=== PATIENT | female | born 1995 | race Caucasian/White ===

== ENCOUNTER 2018-08-16 05:09 | Inpatient (IN) | payer BC, OTHER ==
[2018-08-16] MEDS ORDERED: Docusate 100 MG CAP PO PRN (05:28)
[2018-08-16] MEDS ORDERED: Promethazine HCl 25 MG/ML VIAL IM PRN ×2 (05:28→07:44)
[2018-08-16] MEDS ORDERED: Ondansetron PF 4 MG/2 ML Vial IVP PRN ×2 (05:28→07:44)
[2018-08-16] MEDS ORDERED: Bicitra 30 ML UDCUP PO SCH (05:30)
[2018-08-16] MEDS ORDERED: CEFAZOLIN 2 GM in Premix Bag 1 BAG IVPB SCH (05:30)
[2018-08-16 06:00] VITALS: BMI 32.5
[2018-08-16] MEDS: Lactated Ringer's 1,000 ML IV SCH ×2 (06:00→14:47)
[2018-08-16 06:19] LABS: Hemoglobin 11.9 g/dL (12.0-16.0); Mean Corpuscular HGB CONC 33.4 g/dL (32.0-36.0); Mean Corpuscular Hemoglobin 27.7 pg (27.0-31.0); Mean Corpuscular Volume 82.8 fL (78.0-98.0); Mean Platelet Volume 8.6 fL (7.4-10.4); Platelet Count 235 thou/uL (130-400); White Blood Cell (WBC) Count 11.3 thou/uL (4.8-10.8)
[2018-08-16 07:00] LABS: HBSAg Index 0.27 S/CO (0-0.99); Hep B Surf Ag Non-Reactive S/CO (NonReactive); Syphilis Antibody Nonreactive (Nonreactive); Syphilis Antibody Index 0.03 S/CO (<1.00 Non-Reactive)
[2018-08-16] MEDS ORDERED: MORPHINE 5 MG/10 ML PF VIAL ONE (07:01)
[2018-08-16] MEDS ORDERED: Oxytocin 10 UNITS/ML VIAL ONE ×2 (07:01→07:56)
[2018-08-16] MEDS ORDERED: Ondansetron PF 4 MG/2 ML Vial ONE ×3 (07:02→16:21)
[2018-08-16] MEDS ORDERED: ePHEDrine/0.9% NaCl/PF SYRINGE 50 mg/10 ml ONE (07:02)
[2018-08-16] MEDS ORDERED: Phenylephrine HCL 10 MG/ML VIAL ONE (07:17)
[2018-08-16] MEDS ORDERED: PHENYLEPHRINE-NS 100 MCG/ML 10 ML SYRINGE ONE ×2 (07:17→16:21)
[2018-08-16] MEDS ORDERED: L&D-Morphine 4 MG/ML VIAL SLOW IVP PRN (07:43)
[2018-08-16] MEDS ORDERED: Ondansetron HCl/PF 4 MG/2 ML Vial IVP PRN (07:43)
[2018-08-16] MEDS ORDERED: HYDROmorphone 2 MG/ML VIAL SLOW IVP PRN (07:43)
[2018-08-16] MEDS ORDERED: Promethazine HCl 25 MG SUPP PR PRN (07:44)
[2018-08-16] MEDS ORDERED: Naloxone HCl 0.4 mg/ml Vial IVP PRN ×2 (07:44)
[2018-08-16] MEDS ORDERED: Eucerin (Mineral Oil/Petrolatum,White) 30 gm Jar TOP PRN (07:44)
[2018-08-16] MEDS ORDERED: diphenhydrAMINE 50 MG/ML VIAL IVP PRN (07:44)
[2018-08-16] MEDS ORDERED: Naloxone HCl 0.4 mg/ml Vial IV PRN (07:44)
[2018-08-16] MEDS ORDERED: Ketorolac Tromethamine 30 MG/ML VIAL IVP SCH (07:45)
[2018-08-16] MEDS ORDERED: Communication Order-Pharmacy FS SCH (07:45)
[2018-08-16] MEDS ORDERED: Ketorolac Tromethamine 30 MG/ML VIAL ONE ×2 (08:34→16:21)
[2018-08-16] MEDS ORDERED: Adacel (T-DAP) 0.5 ML SYRINGE IM ONE (08:48)
[2018-08-16] MEDS ORDERED: Zolpidem Tartrate 5 MG TAB PO PRN (08:48)
[2018-08-16] MEDS ORDERED: Lanolin Ointment 7 GM TUBE TOP PRN (08:48)
[2018-08-16] MEDS ORDERED: diphenhydrAMINE 25 MG CAP PO PRN (08:48)
[2018-08-16] MEDS ORDERED: NS / Oxytocin 40 units/1000ml 1,000 ML IV SCH (09:00)
[2018-08-16] MEDS ORDERED: Meperidine HCl/PF 25 MG/ML VIAL ONE ×2 (09:37→12:15)
[2018-08-16] MEDS: Meperidine HCl/PF 25 MG/ML VIAL SLOW IVP PRN ×2 (09:39→12:16)
[2018-08-16] MEDS ORDERED: diphenhydrAMINE 50 MG/ML VIAL ONE (10:23)
[2018-08-16] MEDS: Docusate Calcium (SURFAK) 240 MG CAP PO SCH ×2 (12:33→20:50)
[2018-08-16] MEDS: Prenatal Vitamin 1 TAB PO SCH (12:33)
[2018-08-16] MEDS: Ketorolac Tromethamine 30 MG/ML VIAL IVP PRN ×2 (14:43→20:49)
[2018-08-16] MEDS ORDERED: ePHEDrine 50 MG/ML VIAL ONE (16:21)
[2018-08-16] MEDS ORDERED: HYDROcodone/Acetaminophen 5/325 mg Tablet PO PRN (19:45)
[2018-08-16] MEDS: Simethicone Chewable 80 MG TAB PO PRN (20:50)
[2018-08-17] MEDS: Lactated Ringer's 1,000 ML IV SCH ×4 (05:11→22:21)
[2018-08-17] MEDS: Ibuprofen 800 MG TAB PO SCH ×3 (06:34→22:19)
[2018-08-17] MEDS: Docusate Calcium (SURFAK) 240 MG CAP PO SCH ×2 (09:13→20:40)
[2018-08-17] MEDS: Prenatal Vitamin 1 TAB PO SCH (09:13)
[2018-08-17] MEDS: Simethicone Chewable 80 MG TAB PO PRN ×2 (09:13→15:17)
[2018-08-17] MEDS: HYDROcodone/Acetaminophen 5/325 mg Tablet PO PRN ×3 (09:15→20:39)
[2018-08-17] MEDS ORDERED: Ibuprofen 800 MG TAB PO SCH (14:00)
--- NOTE | 2018-08-17 16:42 | OP ---
DATE OF PROCEDURE: 08/16/2018 PREOPERATIVE DIAGNOSES: 1. Hx of LTCS/ Declined 2. GBS positive CLINICAL HISTORY: This is a 23-year-old female, G2, P1, who had an uneventful preoperative course. She was found to have a group B strep positive urine culture at the beginning of her , which was treated with antibiotics; however, the patient was notified that she would be deemed positive for group B strep in the latter portion of her . She continued without any concerns throughout the entirety of the and she requested a repeat low- transverse section versus . Her first was a for breech presentation. The risks, benefits, and possible complications of both were discussed, and the patient continued to desire a repeat . SURGEON: Dr Smaantha Stern RAPID EXTRACTOR OPERATOR: Dr. Garry Osullivan. ESTIMATED BLOOD LOSS: 450 mL. QUANTITATIVE BLOOD LOSS: 580. ANESTHESIA: Spinal. Urine output was clear in the Hull bag at the end of the procedure. DESCRIPTION OF PROCEDURE: The patient was taken to the operating room, where spinal anesthesia was obtained. She was laid in the supine position, and a Hull catheter was atraumatically placed. She was then tilted to the maternal left to displace the uterus and was prepped and draped in the usual sterile fashion. After testing for adequate anesthesia, an incision was made over her previous incision and previous scar was removed. The incision was then taken all the way down to the fascia and the fascia was nicked in the midline. The incision was extended out bilaterally with the Chau scissors. Robert clamps were used x2 to elevate the fascia off of the rectus muscle. In similar fashion, the fascial inferior border was lifted off of the pyramidalis and rectus muscle. The muscles were then in the midline and the peritoneum was breached by tenting the peritoneum. The incision was then extended with a combination of sharp and blunt dissection. The bladder blade was placed. A bladder flap was created and the bladder flap was secured under the bladder blade and the incision was made on the lower uterine segment with the scalpel. When an amniotomy was performed, there was clear fluid. The incision was then extended with traction and the surgeon's hand was placed into the incision to deliver the head through the incision. The head was delivered. There was noted to be a nuchal cord. This was reduced very easily. The anterior shoulder followed by the posterior shoulder followed by the remainder of the infant's body was delivered. The cord was doubly clamped and cut. The cried spontaneously, was shown to the parents and then taken over to the Neonatology bed for the attention of the nurses there. The cord blood was obtained. The uterus was explored and the placenta was delivered manually intact with a three-vessel cord. The uterus was then exteriorized and cleansed of all debris with a dry lap, and the incision was closed with a double-layer closure in a running locking fashion with excellent hemostasis. The bladder flap was then reapproximated with a 3-0 Monocryl and the gutters were cleansed of all debris in four pieces. Seprafilm was placed over the anterior surface of the uterine body and the uterus was then placed back into the abdomen. The peritoneum was then closed in a running fashion and the rectus muscles were reapproximated with a running suture. The prefascial gutters were then cleansed of all debris and the fascia was then closed in a running fashion with 0 Vicryl. The subcutaneous tissues were cleansed of all debris and Bovie cautery was used to cauterize any bleeding. The subcutaneous tissues were then reapproximated with interrupted sutures from the lower layers to the skin and the skin was closed with 0 Vicryl on a Yan needle with excellent hemostasis. Reapproximation was reinforced by Steri-Strips and Mastisol, and a pressure dressing with Telfa and Tegaderm and 4x4s was placed. The patient tolerated the procedure well. She was expressed at the end of the procedure and cleansed and then transferred to [facility] for transfer to the surgical recovery area. All needle, sponge, lap, and instrument counts were correct x2 at the end of the procedure. There were no other issues surrounding this delivery. Job ID: [id number] [facility]
[2018-08-18] MEDS: HYDROcodone/Acetaminophen 5/325 mg Tablet PO PRN (05:57)
[2018-08-18] MEDS: Ibuprofen 800 MG TAB PO SCH ×2 (05:57→14:34)
[2018-08-18] MEDS: Lactated Ringer's 1,000 ML IV SCH ×2 (06:16→11:12)
[2018-08-18 08:00] VITALS: BP 114/62; TEMP 98.4
[2018-08-18] MEDS: Docusate Calcium (SURFAK) 240 MG CAP PO SCH (09:12)
[2018-08-18] MEDS: Prenatal Vitamin 1 TAB PO SCH (09:13)
== END 2018-08-18 18:54 | disposition home or self-care (01) | DRG 788 ==
LOC: L&D 05:09 → 3SW 12:33
PROVIDERS: ADMIT Obstetrics & Gynecology; ATTEND Obstetrics & Gynecology
PROC: 10D00Z1 Extraction of Products of Conception, Low, Open Approach (ICD-10-PCS; principal; 2018-08-16)
PROC: 3E0P05Z Introduction of Adhesion Barrier into Female Reproductive, Open Approach (ICD-10-PCS; 2018-08-16)
DX: O34.211 Maternal care for low transverse scar from previous cesarean delivery (principal); O99.824 Streptococcus B carrier state complicating childbirth; Z37.0 Single live birth; O69.81X0 Labor and delivery complicated by cord around neck, without compression, not applicable or unspecified; Z3A.39 39 weeks gestation of pregnancy
CPT/HCPCS: 36415; 51702; 85027; 86780; 86850; 86900; 86901; 87340; J1200; J1885; J2175; J2270; J2370; J2405; J2590; J3490; Q0163